=== PATIENT | female | born 1955 | race Caucasian/White ===

== ENCOUNTER 2016-10-06 09:16 | Day surgery (SDC) | payer BC ==
[2016-10-03 11:01] VITALS: BMI 34.6
--- NOTE | 2016-10-06 11:46 | HP ---
Past Medical History - Primary Care Physician PCP:: Devin Esquivel - Admission Chief Complaint: 61yo with NIALL 2-3 admitted for a cold knife cone cervical bx. 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: Alzheimer's, CVA, Dementia, Migraine, Multiple Sclerosis, Peripheral Neuropathy, Parkinson's, Seizure, Syncope, TIA, Vertigo, Other Cardiovascular: No: AFIB, Aneurysm, Aortic Insufficiency, Aortic Stenosis, CAD, CHF, Deep Vein Thrombosis, HTN, Hyperlipdemia, AL, Mitral Insufficiency, Mitral Stenosis, Murmur, Pulmonary Hypertension, Other Pulmonary: No: Asthma, Bronchitis, Cancer, COPD, O2 Dependent, Pneumonia, Previously Intubated, Pulmonary Embolus, Pulmonary Fibrosis, Sleep Apnea, Other Gastrointestinal: No: Ascites, Cancer, Constipation, Crohn's Disease, Diverticulitis, Diverticulosis, Esophageal Varices, Gastritis, GERD, GI Bleed, Hemorrhoids, Hiatal Hernia, Inflamatory Bowel Disease, Irritable Bowel Disease, Pancreatitis, Peptic Ulcer Disease, Ulcerative Colitis, Other Hepatobiliary: No: Cirrhosis, Cholelithiasis, Cholecystitis, Choledocholithiasis , Hepatitis A, Hepatitis B, Hepatitis C, Other Renal/: No: Renal Failure, Renal Inusuff, BPH, Cancer, Hematuria, Hemodialysis , Neurogenic Bladder, Renal Calculi, UTI, Other Reproductive: No: Ectopic , Endometriosis, Fibroids, PID, Polycystic Ovary Syndrome, Postmenopausal, Other Heme/Onc: No: Anemia, B12 Deficiency, Bleeding Disorder, Cancer, Current Chemotherapy, Current Radiation Therapy, Hemochromatosis, Hypercoaguable State, Myeloproliferative Synd, Sickle Cell Disease, Sickle Cell Trait, Thrombocytopenia, Other Infectious Disease: No: AIDS, C-Diff, Herpes Zoster, HIV, MRSA, STD's, Tuberculosis, VREF, Other Psych: No: Addictions, Anxiety, Bipolar, Depression, Panic, Psychosis, Schizophrenia, Other Musculoskeletal: No: Bursitis, Chronic low back pain, Hemiparesis, Hemiplegia, Osteoarthritis, Paraplegia, Other Rheumatology: No: Fibromyalgia, Gout, Lupus, Rheumatoid Arthritis, Sarcoidosis, Vasculitis, Other ENT: No: Allergic Rhinitis, Sinusitis, Other Endocrine: Yes: Diabetes Mellitus Dermatology: No: Basal Cell, Cellulitis, Eczema, Melanoma, Psoriasis, Squamous Cell, Other Additional Medical History: Obesity, hyperlipidemia - Past Surgical History Past Surgical History: Yes: None Hx Myomectomy: No Hx Transabdominal Cerclage: No - Smoking History Smoking history: Former smoker Have you smoked in the past 12 months: No Aproximately how many cigarettes per day: 0 If you are a former smoker, when did you quit?: 15 YRS AGO - Alcohol/Substance Use Hx Alcohol Use: No History of Substance Use: reports: None - Social History ADL: Independent History of Recent Travel: No Home Medications - Allergies Allergies/Adverse Reactions: Allergies Allergy/AdvReac Type Severity Reaction Status Date / Time adhesive Allergy Verified 10/06/16 10:42 cefaclor [From Ceclor] Allergy Verified 10/06/16 10:42 codeine [Codeine] Allergy Verified 10/06/16 10:42 ivp dye Allergy Uncoded 10/06/16 10:42 - Home Medications Home Medications: Ambulatory Orders Metoprolol Tartrate [Lopressor -] 25 mg PO BID #0 tab 04/14/12 Amlodipine Besylate 10 mg PO DAILY 10/03/16 Aspirin [Ecotrin] 81 mg PO DAILY 10/03/16 Calcium Carbonate/Vitamin D3 [Calcium 600 + Vit D Tablet] 1 each PO DAILY L.acidoph,Paracasei, B.lactis [Probiotic] 1 each PO DAILY 10/03/16 Magnesium 200 mg PO DAILY 10/03/16 Multivit-Min/FA/Lycopen/Lutein [Centrum Silver Tablet] 1 each PO DAILY 10/03/16 Mv,Iron,Min/Folic Acid/Biotin [Hair Formula Tablet] 1 each PO DAILY 10/03/16 Rabeprazole Sodium [Aciphex] 20 mg PO DAILY 10/03/16 Rosuvastatin Calcium [Crestor] 20 mg PO HS 10/03/16 Turmeric Root Extract [Turmeric] 500 mg PO DAILY 10/03/16 Family Disease History - Family Disease History Family History: Denies Review of Systems - Review of Systems Constitutional: reports: No Symptoms Eyes: reports: No Symptoms HENT: reports: No Symptoms Neck: reports: No Symptoms Cardiovascular: reports: No Symptoms Respiratory: reports: No Symptoms Gastrointestinal: reports: No Symptoms Genitourinary: reports: No Symptoms Breasts: reports: No Symptoms Reported Musculoskeletal: reports: No Symptoms Integumentary: reports: No Symptoms Neurological: reports: No Symptoms Endocrine: reports: No Symptoms Hematology/Lymphatic: reports: No Symptoms Psychiatric: reports: No Symptoms 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: Vital Signs Temperature 98.2 F 10/06/16 10:34 Pulse Rate 53 L 10/06/16 10:34 Respiratory Rate 20 10/06/16 10:34 Blood Pressure 132/63 10/06/16 10:34 O2 Sat by Pulse Oximetry (%) 99 10/06/16 10:27 Constitutional: Yes: Well Nourished, No Distress, Calm Eyes: Yes: WNL, Conjunctiva Clear HENT: Yes: WNL, Atraumatic, Normocephalic Neck: Yes: WNL, Supple, Trachea Midline Cardiovascular: Yes: WNL, Regular Rate and Rhythm Respiratory: Yes: WNL, Regular, CTA Bilaterally Gastrointestinal: Yes: Normal Bowel Sounds, Soft, Abdomen, Obese ...Rectal Exam: Yes: Deferred Renal/: Yes: WNL Pelvis: Yes: WNL External Genitalia: Yes: Normal Internal Exam Deferred: No Vaginal Exam: Yes: Normal Cervix: Yes: Normal Uterus: Yes: Normal Breast(s): Yes: WNL Musculoskeletal: Yes: WNL Extremities: Yes: WNL Edema: No Integumentary: Yes: WNL Neurological: Yes: WNL, Alert, Oriented ...Motor Strength: WNL Psychiatric: Yes: WNL, Alert, Oriented Assessment/Plan 61 yo female with NIALL 2-3 on colposcopy admitted for a cold knife cone bx. We had a long discussion about the risks, benefits, alternatives of the procedure, including bleeding, pain, recurrent dysplasia and/or cancer. The pt verbalized her understanding and requested to proceed.
[2016-10-06] MEDS ORDERED: MIDAZOLAM HCL 2 MG/2 ML SINGLE DOSE VIAL ONE (11:47)
[2016-10-06] MEDS ORDERED: SCOPOLAMINE HYDROBROMIDE 1 PATCH PATCH.TD72 ONE (11:47)
[2016-10-06] MEDS ORDERED: LIDOCAINE 1%/EPI 1:100000 (50 ML MULTI DOSE VIAL) ONE (12:05)
[2016-10-06] MEDS ORDERED: LIDOCAINE 1%/EPI 1:100000 (50 ML MULTI DOSE VIAL) INF ONE (12:06)
--- NOTE | 2016-10-06 12:41 | OP ---
Operative Note - Note: Operative Date: 10/06/16 Pre-Operative Diagnosis: NIALL 2-3 Operation: Cold knife cervical cone bx, ECC Findings: Normal cervix w/o lesions Post-Operative Diagnosis: Same as Pre-op Surgeon: Devin Esquivel Anesthesiologist/FIGURE MODEL: Cecilia Diez Anesthesia: General Specimens Removed: Cervical Cone bx Estimated Blood Loss (mls): 3 Blood Volume Replaced (mls): 0 Fluid Volume Replaced (mls): 600 Operative Report Dictated: Yes
[2016-10-06] MEDS ORDERED: ONDANSETRON 4 MG/2 ML VIAL IVPUSH PRN (12:44)
[2016-10-06] MEDS ORDERED: oxyCODONE HCL 5 MG TABLET PO PRN (12:44)
[2016-10-06] MEDS ORDERED: PROMETHAZINE HCL 25 MG/1 ML VIAL IVPUSH PRN (12:44)
[2016-10-06 13:27] VITALS: TEMP 97.8
[2016-10-06 14:08] VITALS: BP 145/69; PULSE 56
--- NOTE | 2016-10-07 05:41 | OP ---
DATE OF OPERATION: 10/06/2016 PREOPERATIVE DIAGNOSIS: Cervical intraepithelial neoplasia, grade 2-3. POSTOPERATIVE DIAGNOSIS: Cervical intraepithelial neoplasia, grade 2-3. PROCEDURE: Cold-knife cervical cone biopsy and endocervical curettage. SURGEON: Devin Esquivel MD OPHTHALMIC TECH: None. ANESTHESIOLOGIST: Cecilia Diez MD ANESTHESIA: General. COMPLICATIONS: None. ESTIMATED BLOOD LOSS: 3 mL. INTRAVENOUS FLUIDS: Crystalloid, 600 mL. URINE OUTPUT: Not counted. PATHOLOGY: Cervical cone biopsy and endocervical curettings. FINDINGS: Examination under anesthesia revealed a normal atrophic cervix without any lesions. Lugols solution was applied and no areas of acetowhite epithelium noted. Good hemostasis at the end of the procedure. DESCRIPTION OF PROCEDURE: The patient was met preoperatively. Risks, benefits, and alternatives of surgery were discussed in details. All questions were answered. The patient was then brought to the OR with the IV running. The patient was placed in a supine position on the surgical table. The general anesthesia was achieved without difficulty. The patient was then placed in a dorsal lithotomy position using adjustable Michele stirrups. She was prepped and draped in the usual sterile fashion. Examination under anesthesia was done with the findings as described previously. Two cervical sutures were placed for hemostasis at 3 o'clock and 9 o'clock using 0 Vicryl. A 1% lidocaine with epinephrine was injected into the cervical stroma circumferentially for additional hemostasis. The cervical os was traced using a cervical dilator. With the cervical dilator in place, a cone biopsy was excised to approximate the internal cervical os. The cone biopsy was removed and submitted to Pathology. A circumferential cervical suture was then used around the wound to obtain hemostasis. Once this was completed, good hemostasis was noted. Monsels solution was also applied for additional hemostasis. Once the procedure was completed, there was no further bleeding noted, and good hemostasis was confirmed. All of the instruments were removed from the patient. Sponge, lap, and needle counts were correct. The patient was transferred to the recovery room in stable condition and awake. Fareed TAVAREZ/[id number]
--- NOTE | 2016-10-08 14:39 | PATH ---
Surgical Pathology Report Patient Name: JUDITH BARGER Med. Rec. #: [id number] /Age/Gender: 1955 (Age: 61) / F Account: [id number] Location: [facility] SURGICAL Taken: 10/06/2016 Received: 10/06/2016 Reported: 10/08/2016 Physicians: Devin Esquivel M.D. Specimen(s) Received A: ENDOCERVICAL CURETTINGS B: CERVICAL CONE BX Clinical History Vaginal cervical neoplasia III Final Diagnosis A. ENDOCERVIX, CURETTAGE: DETACHED FRAGMENTS OF SQUAMOUS EPITHELIUM WITH HIGH GRADE SQUAMOUS INTRAEPITHELIAL LESION. SCANT FRAGMENTS OF BENIGN ENDOCERVICAL TISSUE. B. CERVIX, COLD KNIFE CONE BIOPSY: CERVICAL SQUAMOUS AND ENDOCERVICAL MUCOSA WITH FOCI OF HIGH GRADE SQUAMOUS INTRAEPITHELIAL LESION (CERVICAL INTRAEPITHELIAL NEOPLASIA 2-3/ NIALL 2-3) WITH GLANDULAR INVOLVEMENT. SURGICAL RESECTION MARGINS: ECTO- AND ENDOCERVICAL MARGINS ARE FREE OF HIGH GRADE DYSPLASIA; GLANDULAR EXTENSION OF HIGH GRADE DYSPLASIA FOCALLY ABUTS THE INKED SOFT TISSUE MARGIN. TRANSFORMATION ZONE: PRESENT. Electronically Signed Hipolito Cason M.D. Gross Description A. Received in formalin, labeled "endocervical curettings" is 0.7 cm in greatest dimension fragments of heath-pink soft tissue admixed with mucus. Entirely submitted in one cassette. B. Received in formalin, labeled "cervical cone biopsy" is a 1.5 x 1.1 x 0.7 cm unoriented annular portion of soft tissue. The cervical os is identified. The endocervical aspect is inked blue, the ectocervical and soft tissue aspects are inked black. The specimen is radially sectioned in clockwise direction and entirely submitted in four cassettes. AF/10/06/2016 final/10/06/2016
== END 2016-10-06 14:07 | disposition home or self-care (01) ==
LOC: JASU-SURG 09:16
PROVIDERS: ATTEND Obstetrics & Gynecology
PROC: 0UBC7ZX Excision of Cervix, Via Natural or Artificial Opening, Diagnostic (ICD-10-PCS; principal; 2016-10-06 11:00)
DX: N87.9 Dysplasia of cervix uteri, unspecified (principal)
CPT/HCPCS: 86850; 86900; 86901; 88305-TC; 88307-TC; 94760

== ENCOUNTER 2017-02-27 17:35 | Inpatient (IN) | payer BC ==
--- NOTE | 2017-02-27 17:42 | PDOC ---
Rapid Medical Evaluation Time Seen by Provider: 02/27/17 17:41 Medical Evaluation: Allergies Allergy/AdvReac Type Severity Reaction Status Date / Time adhesive Allergy Verified 10/06/16 10:42 cefaclor [From Ceclor] Allergy Verified 10/06/16 10:42 codeine [Codeine] Allergy Verified 10/06/16 10:42 ivp dye Allergy Uncoded 10/06/16 10:42 02/27/17 17:41 I have performed a brief in-person evaluation of this patient. The patient presents with a chief complaint of: Palpitations and sob tonight. H/ o HTN, HLD, former smoker, ?COPD Pertinent physical exam findings: Visibly SOB w/ tachycardia to 137, BP of 164/ 80 and sating 100% on RA. Has rapid afib on ekg to the 140s (no known hx per pt) I have ordered the following: Pt transferred immediately to main ED The patient will proceed to the ED for further evaluation. 02/27/17 17:44 Discharge Disposition - Referrals Referrals: Rachael Beatty MD [Primary Care Provider] - - Patient Instructions - Post Discharge Activity
[2017-02-27 18:04] VITALS: BMI 34.1
[2017-02-27] MEDS ORDERED: dilTIAZem HCL 50 MG/10 ML - 10 ML VIAL IVPUSH ONE (18:17)
[2017-02-27] MEDS ORDERED: dilTIAZem HCL 125 MG/25 ML - 25 ML VIAL ONE (18:22)
[2017-02-27] MEDS ORDERED: dilTIAZem HCL 50 MG/10 ML - 10 ML VIAL ONE (18:22)
--- NOTE | 2017-02-27 18:28 | PDOC ---
History of Present Illness - General Chief Complaint: Palpitations Stated Complaint: CHEST PAIN Time Seen by Provider: 02/27/17 17:41 - History of Present Illness Initial Comments: 02/27/17 18:27 61 yo F with h/o HTN, HLD, and GERD who presents with palpations. Pt. reports acute onset of palpitations "chest fluttering," and associated SOB at rest. States that she was laying down watching television at time of onset. Also endorses increased urinary frequency. Denies chest pain, N/V, fevers/chills, lightheadedness, LOC, abdominal pain, dysuria. Denies h.o NM , ACS/NM, CABG. Denies h/o DVT/PE. Denies h/o anticoagulation. 81 mg ASA/day. Past History - Past Medical History Allergies/Adverse Reactions: Allergies Allergy/AdvReac Type Severity Reaction Status Date / Time adhesive Allergy Verified 02/27/17 20:19 cefaclor [From Ceclor] Allergy Verified 02/27/17 20:19 codeine [Codeine] Allergy Verified 02/27/17 20:19 ivp dye Allergy Uncoded 02/27/17 20:19 Home Medications: Ambulatory Orders Metoprolol Tartrate [Lopressor -] 25 mg PO BID #0 tab 04/14/12 Amlodipine Besylate 10 mg PO DAILY 10/03/16 Aspirin [Ecotrin] 81 mg PO DAILY 10/03/16 Calcium Carbonate/Vitamin D3 [Calcium 600 + Vit D Tablet] 1 each PO DAILY L.acidoph,Paracasei, B.lactis [Probiotic] 1 each PO DAILY 10/03/16 Multivit-Min/FA/Lycopen/Lutein [Centrum Silver Tablet] 1 each PO DAILY 10/03/16 Mv,Iron,Min/Folic Acid/Biotin [Hair Formula Tablet] 1 each PO DAILY 10/03/16 Rabeprazole Sodium [Aciphex] 20 mg PO DAILY 10/03/16 Rosuvastatin Calcium [Crestor] 20 mg PO HS 10/03/16 Turmeric Root Extract [Turmeric] 500 mg PO DAILY 10/03/16 Anemia: No Asthma: No Cancer: No Cardiac Disorders: No CVA: No COPD: Yes CHF: No Dementia: No Diabetes: Yes (CONTROLLED BY DIET) GI Disorders: Yes (gastritis) Disorders: No HTN: Yes Hypercholesterolemia: Yes Liver Disease: No Seizures: No Thyroid Disease: No - Surgical History Appendectomy: No Cholecystectomy: Yes Orthopedic Surgery: Yes (BILAT FEET SX) - Suicide/Smoking/Psychosocial Hx Smoking Status: Yes Smoking History: Never smoked Have you smoked in the past 12 months: No Number of Cigarettes Smoked Daily: 0 If you are a former smoker, when did you quit?: 15 YRS AGO Information on smoking cessation initiated: No Hx Alcohol Use: No Drug/Substance Use Hx: No Substance Use Type: None Hx Substance Use Treatment: No Cardiac Specific PMH - Complaint Specific PMHX Pacemaker: No Review of Systems - Review of Systems Comments:: 02/27/17 18:56 GENERAL/CONSTITUTIONAL: No fever or chills. No weakness. HEAD, EYES, EARS, NOSE AND THROAT: No change in vision. No ear pain or discharge. No sore throat.- CARDIOVASCULAR: + Palpitations, SOB. No chest pain or shortness of breath RESPIRATORY: No cough, wheezing, or hemoptysis. GASTROINTESTINAL: No nausea, vomiting, diarrhea or constipation. GENITOURINARY: No dysuria, frequency, or change in urination. MUSCULOSKELETAL: No joint or muscle swelling or pain. No neck or back pain. SKIN: No rash NEUROLOGIC: No headache, vertigo, loss of consciousness, or change in strength/ sensation. ENDOCRINE: No increased thirst. No abnormal weight change HEMATOLOGIC/LYMPHATIC: No anemia, easy bleeding, or history of blood clots. ALLERGIC/IMMUNOLOGIC: No hives or skin allergy. *Physical Exam - Vital Signs Last Vital Signs Temp Pulse Resp BP Pulse Ox 98.2 F 92 H 18 135/77 100 02/27/17 17:41 02/27/17 18:43 02/27/17 18:43 02/27/17 18:43 02/27/17 18:43 - Physical Exam Comments: 02/27/17 18:56 GENERAL: Awake, alert, and fully oriented, in no acute distress HEAD: No signs of trauma, normocephalic, atraumatic EYES: PERRLA, EOMI, sclera anicteric, conjunctiva clear ENT: Auricles normal inspection, hearing grossly normal, nares patent, oropharynx clear without exudates. Moist mucosa NECK: Normal ROM, supple, no lymphadenopathy, JVD, or masses LUNGS: No distress, speaks full sentences, clear to auscultation bilaterally HEART: Irregular rate and rhythm, normal S1 and S2, no murmurs, rubs or gallops , peripheral pulses normal and equal bilaterally. EXTREMITIES : Normal inspection, Normal range of motion, no edema. No clubbing or cyanosis. NEUROLOGICAL: Cranial nerves II through XII grossly intact. Normal speech, normal gait, no focal sensorimotor deficits SKIN: Warm, Dry, normal turgor, no rashes or lesions noted. Heart Score/ECG Review - History History: Slightly suspicious - Electrocardiogram EKG: Non specific repolarization disturbance - Age Age: 45-65 - Risk Factors Risk Factors Heart Score: Yes Hx Hypercholesterolemia, Yes Hx Hypertension, Yes Smoking History Based on the list above the patient has:: >/=3 risk factors or Hx atherosclerotic disease - Troponin Troponin: </= normal limit - Score Heart Score - Total: 4 - [place]: Normal - QRS Poor R Wave Progression: No Q Wave Present: No - ST and T Early Repolarization: No Non Specific ST-T Wave changes: No Flattened T Waves: No Prolonged Q-T Interval: No - ECG Impressions Normal ECG: No Non-specific ST Elevation: Yes Tachycardia: Afib w/rapid Vent rate Torsades kevin Pointes: No WPW: No ED Treatment Course - LABORATORY CBC & Chemistry Diagram: 02/27/17 18:13 02/27/17 18:13 - ADDITIONAL ORDERS Additional order review: Laboratory Results 02/27/17 02/27/17 18:13 18:00 Sodium 143 Potassium 3.7 Chloride 111 H Carbon Dioxide 22 Anion Gap 10 BUN 11 D Creatinine 0.7 Creat Clearance w eGFR > 60 Random Glucose 115 H Calcium 9.2 Total Bilirubin 0.6 D AST 37 D ALT 70 D Alkaline Phosphatase 107 Creatine Kinase 161 Troponin I < 0.02 Total Protein 8.1 Albumin 4.2 Urine Color Colorless Urine Appearance Clear Urine pH 8.0 Ur Specific Snook 1.002 Urine Protein Negative Urine Glucose (UA) Negative Urine Ketones Negative Urine Blood Negative Urine Nitrite Negative Urine Bilirubin Negative Urine Urobilinogen Negative 02/27/17 18:13 RBC 4.60 MCV 89.4 MCHC 35.0 RDW 13.4 MPV 8.6 D Neutrophils % 37.9 L Lymphocytes % 53.2 H Monocytes % 6.7 D Eosinophils % 1.6 D Basophils % 0.6 - Medications Given in the ED: ED Medications Discontinued Medications Generic Name Dose Route Start Last Admin Trade Name Trino PRN Reason Stop Dose Admin Diltiazem HCl 20 mg 02/27/17 18:17 02/27/17 18:30 Cardizem Injection - IVPUSH 02/27/17 18:18 20 mg ONCE ONE Administration Medical Decision Making - Medical Decision Making 02/27/17 19:04 61 yo F with h/o HTN, HLD, and GERD who presents acute onset of palpitations "chest fluttering," 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 Phyiscal exam unremarkable with elevated pulse~129 on arrival and hypertensive SBP-164/ 86. Denies h/o NM, ACS/NM, CABG. Denies h/o DVT/PE. Denies h/o anticoagulation. 81 mg ASA/day. Patient EKG on arrival with evidence of new onset A-fib. Patient currently asymptomatic, but will provide rate control in ED. PCP Jaci. ED course: 02/27/17 19:20 CBC, CMP, Cardiac, EKG,CXR Diltiazem 20 mg, and Diltiazem gtt. 02/27/17 19:24 CBC, CMP: Unremarkable Trop: Neg 02/27/17 19:57 EKG: A-fib w/rvr, STD in inferior-lateral leads. Absent STD, or TWI. 02/27/17 20:06 CXR: unremarkable 02/27/17 20:[address] Beatty Admit to Tele. Consulted Dr. Oh Lovenox 100 mg IV *DC/Admit/Observation/Transfer - Referrals Referrals: Rachael Beatty MD [Primary Care Provider] - - Patient Instructions - Post Discharge Activity
[2017-02-27] MEDS ORDERED: DILTIAZEM INJECTION 125 MG in DEXTROSE 5%-WATER - 100 ML IVPB SCH (18:30)
[2017-02-27 18:33] LABS: URINE APPEARANCE CLEAR; URINE BILIRUBIN NEGATIVE (NEGATIVE); URINE BLOOD NEGATIVE (NEGATIVE); URINE COLOR COLORLESS; URINE GLUCOSE (UA) NEGATIVE (NEGATIVE); URINE KETONE NEGATIVE (NEGATIVE); URINE NITRITE NEGATIVE (NEGATIVE); URINE PROTEIN NEGATIVE (NEGATIVE); URINE UROBILINOGEN NEGATIVE mg/dL (0.2-1.0)
[2017-02-27 18:40] LABS: BASOPHIL 0.6 % (0-2.0); EOSINOPHIL 1.6 % (0-4.5); MCH 31.3 pg (25.7-33.7); MEAN CELL VOLUME 89.4 fl (80-96); MEAN PLT VOLUME 8.6 fl (7.5-11.1); NEUTROPHILS 37.9 % (42.8-82.8); PLATELET COUNT 290 K/MM3 (134-434); RDW 13.4 % (11.6-15.6); WHITE BLOOD COUNT 8.7 K/mm3 (4.0-10.0)
[2017-02-27 18:46] LABS: INR 1.01 (0.82-1.09); PROTHROMBIN TIME (PATIENT) 11.4 SEC (9.98-11.88)
[2017-02-27 18:49] LABS: ACTIVATED PTT 28.2 SECONDS (26.9-34.4)
--- NOTE | 2017-02-27 18:56 | PDOC ---
Attending Attestation - Resident Resident Name: Hansel Fournier - ED Attending Attestation I have performed the following: I have examined & evaluated the patient, The case was reviewed & discussed with the resident, I agree w/resident's findings & plan - HPI HPI: 02/27/17 19:02 The patient is a 61 year old female, with a significant past medical history of diabetes, gastritis, hypertension, and hyperlipidemia, who presents the the emergency department complaining of heart flutters for approximately 1 hour. Pt reports sudden onset of palpitations while at rests, but denies any chest pain, shortness of breath, diaphoresis, or lower extremity edema. - Physicial Exam PE: 02/27/17 19:02 Vitals: Triage Vital signs reviewed General Appearance: no acute distress, well nourished well developed, Head: Atraumatic, normocephalic Neck: Supple;No Nuchal rigidity Chest Wall: Nontender Cardiac: Irregularly irregular. No murmurs, no rubs, no gallops, Lungs: Clear to auscultation bilateral, good air movement bilaterally, Abdomen: Soft, nondistended, normal bowel sounds, nontender to palpation Rectal: Exam deferred Extremities: Full range of motion to all extremities, no cyanosis, clubbing, or edema Skin: Warm and dry, no rashes or lesions, no petechiae Neuro: AOX3; Cranial Nerves 2-12 grossly intact, Strength intact to all extremities, Sensation intact to all extremities Psych: normal mood, normal affect - Medical Decision Making 02/27/17 19:02 Patient is a 61 year old female, with a significant past medical history of diabetes, gastritis, hypertension, and hyperlipidemia, who presents the the emergency department complaining of palpitations for approximately 1 hour. Plan -ECG -Labs -CXR -Diltiazem Documentation prepared by Raffi Story, acting as medical staff physician for William Cheung MD. <Raffi Story - Last Filed: 02/27/17 19:01> - Critical Care Time Total Critical Care Time: 35 Critical Care Statement: The care of this patient involved high complexity decision making to prevent further life threatening deterioration of the patient 's condition and/or to evaluate & treat vital organ system(s) failure or risk of failure. - Medical Decision Making 02/28/17 09:34 Patient presents to the emergency department with A. fib with RVR ST depressions laterally on EKG IV diltiazem ordered patient place on IV diltiazem drip Status post IV medications A. fib now rate controlled the patient still remains in A. fib symptomatology of shortness of breath and palpitations have resolved We'll admit to medicine for cardiology consultation and further management <William Cheung - Last Filed: 02/28/17 09:35> Heart Score/ECG Review - ECG Intrepretation Comment:: 02/27/17 19:03 Rate of 140 bpm, AFib with RVR, ST depressions laterally, but no T wave inversions. <Raffi Story - Last Filed: 02/27/17 19:01>
[2017-02-27 18:58] LABS: ALBUMIN 4.2 g/dl (3.4-5.0); ANION GAP 10 (8-16); CALCIUM 9.2 mg/dL (8.5-10.1); CO2 22 mmol/L (21-32); GLUCOSE,RANDOM 115 mg/dL (74-106)
[2017-02-27 19:03] LABS: ALK PHOS 107 U/L (45-117); BILIRUBIN,TOTAL 0.6 mg/dL (0.2-1.0); CPK 161 IU/L (26-192); CREATININE 0.7 mg/dL (0.55-1.02); SGOT/AST 37 U/L (15-37); SGPT/ALT 70 U/L (12-78); TOT PROT 8.1 g/dl (6.4-8.2); TROPONIN I < 0.02 ng/ml (0.00-0.05)
[2017-02-27] MEDS ORDERED: SODIUM CHLORIDE 1,000 ML IV STA (19:59)
[2017-02-27] MEDS ORDERED: ENOXAPARIN NA (PORCINE) 100 MG/1 ML DISP.SYRIN SQ ONE ×2 (20:49→20:57)
[2017-02-27] MEDS ORDERED: ENOXAPARIN NA (PORCINE) 100 MG/1 ML DISP.SYRIN SQ SCH (22:00)
[2017-02-27 22:03] LABS: URINE LEUK ESTERASE Negative (NEGATIVE)
[2017-02-27] MEDS: ROSUVASTATIN CA 20 MG TABLET (FP) PO SCH (23:50)
[2017-02-27] MEDS: METOPROLOL TARTRATE 25 MG TABLET (FP) PO SCH (23:50)
[2017-02-28 00:43] LABS: THYROID STIMULATING HORMONE 2.2 uIU/ml (0.358-3.74); TROPONIN I 0.05 ng/ml (0.00-0.05)
[2017-02-28] MEDS ORDERED: PT OWN MED DRAWER 7, Y5N ONE (06:34)
[2017-02-28 07:41] LABS: MCH 30.5 pg (25.7-33.7); MCHC 33.4 g/dl (32.0-36.0); MEAN CELL VOLUME 91.3 fl (80-96); MEAN PLT VOLUME 8.5 fl (7.5-11.1); PLATELET COUNT 282 K/MM3 (134-434); RDW 13.5 % (11.6-15.6); WHITE BLOOD COUNT 8.4 K/mm3 (4.0-10.0)
[2017-02-28 09:12] LABS: ALBUMIN 4.1 g/dl (3.4-5.0); ALK PHOS 106 U/L (45-117); ANION GAP 10 (8-16); BILIRUBIN,TOTAL 0.5 mg/dL (0.2-1.0); CALCIUM 8.7 mg/dL (8.5-10.1); CHOLESTEROL 168 mg/dL (50-200); CO2 23 mmol/L (21-32); CPK 129 IU/L (26-192); CREATININE 0.6 mg/dL (0.55-1.02); GLUCOSE,RANDOM 101 mg/dL (74-106); SGOT/AST 39 U/L (15-37); SGPT/ALT 66 U/L (12-78); TOT PROT 7.8 g/dl (6.4-8.2); TROPONIN I 0.07 ng/ml (0.00-0.05)
[2017-02-28] MEDS ORDERED: ENOXAPARIN NA (PORCINE) 100 MG/1 ML DISP.SYRIN SQ SCH (10:00)
[2017-02-28] MEDS: PANTOPRAZOLE 40 MG TABLET (FP) PO SCH (10:17)
[2017-02-28] MEDS: METOPROLOL TARTRATE 25 MG TABLET (FP) PO SCH (10:17)
[2017-02-28] MEDS: ASPIRIN COATED 81 MG TABLET.EC PO SCH (10:17)
[2017-02-28 10:41] LABS: PLATELET COMMENTS NO CLUMPING NOTED; PLATELET ESTIMATE ADEQUATE; REACTIVE LYMPHOCYTES 3 % (0-80); TOTAL CELLS COUNTED 100
--- NOTE | 2017-02-28 10:58 | HP ---
Admitting History and Physical - Admission History of Present Illness: Patient is a 61 year old female, with a significant past medical history of diabetes, gastritis, hypertension, and hyperlipidemia, who presents the the emergency department complaining of palpitations associated with chest pain and sob THIS AM FEELS BETTER NO CP OR SOB NOW IN SINUS - Past Medical History Cardiovascular: Yes: HTN, Hyperlipdemia Pulmonary: Yes: COPD Gastrointestinal: Yes: GERD Hepatobiliary: Yes: Other (FATTY LIVER) Endocrine: Yes: Diabetes Mellitus - Past Surgical History Past Surgical History: Yes: None - Smoking History Smoking history: Never smoked Have you smoked in the past 12 months: No Aproximately how many cigarettes per day: 0 If you are a former smoker, when did you quit?: 15 YRS AGO - Alcohol/Substance Use Hx Alcohol Use: No History of Substance Use: reports: None - Social History ADL: Independent History of Recent Travel: No Home Medications - Allergies Allergies/Adverse Reactions: Allergies Allergy/AdvReac Type Severity Reaction Status Date / Time adhesive Allergy Verified 02/27/17 20:19 cefaclor [From Ceclor] Allergy Verified 02/27/17 20:19 codeine [Codeine] Allergy Verified 02/27/17 20:19 ivp dye Allergy Uncoded 02/27/17 20:19 - Home Medications Home Medications: Ambulatory Orders Metoprolol Tartrate [Lopressor -] 25 mg PO BID #0 tab 04/14/12 Amlodipine Besylate 10 mg PO DAILY 10/03/16 Aspirin [Ecotrin] 81 mg PO DAILY 10/03/16 Calcium Carbonate/Vitamin D3 [Calcium 600 + Vit D Tablet] 1 each PO DAILY L.acidoph,Paracasei, B.lactis [Probiotic] 1 each PO DAILY 10/03/16 Multivit-Min/FA/Lycopen/Lutein [Centrum Silver Tablet] 1 each PO DAILY 10/03/16 Mv,Iron,Min/Folic Acid/Biotin [Hair Formula Tablet] 1 each PO DAILY 10/03/16 Rabeprazole Sodium [Aciphex] 20 mg PO DAILY 10/03/16 Rosuvastatin Calcium [Crestor] 20 mg PO HS 10/03/16 Turmeric Root Extract [Turmeric] 500 mg PO DAILY 10/03/16 Review of Systems - Review of Systems Cardiovascular: reports: Chest Pain, Palpitations, Shortness of Breath Respiratory: reports: SOB, SOB on Exertion Gastrointestinal: reports: No Symptoms Genitourinary: reports: No Symptoms Physical Examination Vital Signs: Vital Signs Temperature 98.5 F 02/28/17 02:43 Pulse Rate 99 H 02/28/17 06:00 Respiratory Rate 20 02/28/17 06:00 Blood Pressure 141/80 02/28/17 06:00 O2 Sat by Pulse Oximetry (%) 98 02/27/17 22:00 Cardiovascular: Yes: Regular Rate and Rhythm, Murmur Respiratory: Yes: Regular, CTA Bilaterally Gastrointestinal: Yes: Normal Bowel Sounds, Soft. No: Tenderness Edema: No Labs: CBC, BMP 02/28/17 05:25 02/28/17 05:25 Problem List - Problems (1) New onset a-fib Assessment/Plan: NOW IN SINUS TFT NORMAL OFF CARDIZEM DRIP ON LOPRESSOR--WILL INCREASE TO 50 BID DC LOVENOX ELIQUIS 5 BID D-DIMER Code(s): I48.91 - UNSPECIFIED ATRIAL FIBRILLATION (2) Elevated troponin I level Assessment/Plan: MAY BE DEMAND DUE TO RAPID AFIB FOLLOW TROPONIN CARDIO ECHO NUCLEAR STRESS TEST Code(s): R74.8 - ABNORMAL LEVELS OF OTHER SERUM ENZYMES (3) HTN (hypertension) Assessment/Plan: SAME MEDS Code(s): I10 - ESSENTIAL (PRIMARY) HYPERTENSION (4) HLD (hyperlipidemia) Assessment/Plan: ON Code(s): E78.5 - HYPERLIPIDEMIA, UNSPECIFIED (5) Gingivitis Assessment/Plan: PAIN MEDS DENTAL CONSULT ON THURSDAY Code(s): K05.10 - CHRONIC GINGIVITIS, PLAQUE INDUCED
[2017-02-28 12:26] LABS: TROPONIN I 0.05 ng/ml (0.00-0.05)
--- NOTE | 2017-02-28 13:04 | CON.CARD ---
Consult Consult Specialty:: cardiology Referred by:: Jaci Reason for Consultation:: Atrial fibrillation - History of Present Illness Chief Complaint: Palpitations and chest discomfort. History of Present Illness: The patient is a 61-year-old overweight female, we've a history of hypertension , hyperlipidemia, former smoker, now presenting with an acute onset of palpitations associated with chest discomfort. The patient stated that she was resting at home, when she suddenly began experiencing a pounding sensation in her chest. The symptoms were associated with chest tightness and discomfort and mild dyspnea. In the emergency room the patient was found to be in rapid atrial fibrillation. She was treated with intravenous diltiazem. She spontaneously converted to sinus rhythm. She has been maintaining sinus rhythm. Symptoms resolved. The patient denies alcohol consumption. Quit smoking over 15 years ago. She reports good exercise tolerance. She stated that she has been able to exercise at the gym without any important limitations nor symptoms. Reports mild dyspnea while going uphill. These symptoms did not progress. 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 No: Asthma, Bronchitis, Cancer, O2 Dependent, Pneumonia, Previously Intubated, Pulmonary Embolus, Pulmonary Fibrosis, Sleep Apnea, Other Gastrointestinal: Yes: GERD. No: Ascites, Cancer, Constipation, Crohn's Disease , Diverticulitis, Diverticulosis, Esophageal Varices, Gastritis, GI Bleed, Hemorrhoids, Hiatal Hernia, Inflamatory Bowel Disease, Irritable Bowel Disease, Pancreatitis, Peptic Ulcer Disease, Ulcerative Colitis, Other Hepatobiliary: Yes: Other (FATTY LIVER). No: Cirrhosis, Cholelithiasis, Cholecystitis, Choledocholithiasis, Hepatitis A, Hepatitis B, Hepatitis C Renal/: No: Renal Failure, Renal Inusuff, BPH, Cancer, Hematuria, Hemodialysis , Neurogenic Bladder, Renal Calculi, UTI, Other Reproductive: No: Ectopic , Endometriosis, Fibroids, PID, Polycystic Ovary Syndrome, Postmenopausal, Other Infectious Disease: No: AIDS, C-Diff, Herpes Zoster, HIV, MRSA, STD's, Tuberculosis, VREF, Other Psych: No: Addictions, Anxiety, Bipolar, Depression, Panic, Psychosis, Schizophrenia, Other Rheumatology: No: Fibromyalgia, Gout, Lupus, Rheumatoid Arthritis, Sarcoidosis, Vasculitis, Other ENT: No: Allergic Rhinitis, Sinusitis, Other Endocrine: Yes: Diabetes Mellitus. No: [place]'s Disease, [place]'s Disease, Diabetes Insipidus, Hyperparathyroidism, Hyperthyroidism, Hypothyroidism, Osteopenia, SIADH, Other Dermatology: No: Basal Cell, Cellulitis, Eczema, Melanoma, Psoriasis, Squamous Cell, Other Additional Medical History: Obesity, hyperlipidemia - Past Surgical History Past Surgical History: Yes: None - Alcohol/Substance Use Hx Alcohol Use: No History of Substance Use: reports: None - Smoking History Smoking history: Never smoked Have you smoked in the past 12 months: No Aproximately how many cigarettes per day: 0 If you are a former smoker, when did you quit?: 15 YRS AGO - Social History ADL: Independent History of Recent Travel: No Home Medications - Allergies Allergies/Adverse Reactions: Allergies Allergy/AdvReac Type Severity Reaction Status Date / Time adhesive Allergy Verified 02/27/17 20:19 cefaclor [From Ceclor] Allergy Verified 02/27/17 20:19 codeine [Codeine] Allergy Verified 02/27/17 20:19 ivp dye Allergy Uncoded 02/27/17 20:19 - Home Medications Home Medications: Ambulatory Orders Metoprolol Tartrate [Lopressor -] 25 mg PO BID #0 tab 04/14/12 Amlodipine Besylate 10 mg PO DAILY 10/03/16 Aspirin [Ecotrin] 81 mg PO DAILY 10/03/16 Calcium Carbonate/Vitamin D3 [Calcium 600 + Vit D Tablet] 1 each PO DAILY L.acidoph,Paracasei, B.lactis [Probiotic] 1 each PO DAILY 10/03/16 Multivit-Min/FA/Lycopen/Lutein [Centrum Silver Tablet] 1 each PO DAILY 10/03/16 Mv,Iron,Min/Folic Acid/Biotin [Hair Formula Tablet] 1 each PO DAILY 10/03/16 Rabeprazole Sodium [Aciphex] 20 mg PO DAILY 10/03/16 Rosuvastatin Calcium [Crestor] 20 mg PO HS 10/03/16 Turmeric Root Extract [Turmeric] 500 mg PO DAILY 10/03/16 Review of Systems - Review of Systems Constitutional: reports: No Symptoms Eyes: reports: No Symptoms HENT: reports: No Symptoms Neck: reports: No Symptoms Cardiovascular: reports: Palpitations, Shortness of Breath Respiratory: reports: No Symptoms Gastrointestinal: reports: No Symptoms Genitourinary: reports: No Symptoms Breasts: reports: No Symptoms Reported Musculoskeletal: reports: No Symptoms Integumentary: reports: No Symptoms Neurological: reports: No Symptoms Endocrine: reports: No Symptoms Hematology/Lymphatic: reports: No Symptoms Psychiatric: reports: No Symptoms Vital Signs: Vital Signs Temperature 97.9 F 02/28/17 10:00 Pulse Rate 72 02/28/17 10:00 Respiratory Rate 20 02/28/17 10:00 Blood Pressure 139/64 02/28/17 10:00 O2 Sat by Pulse Oximetry (%) 98 02/28/17 09:00 Constitutional: Yes: Well Nourished, No Distress, Calm Eyes: Yes: WNL, Conjunctiva Clear, EOM Intact HENT: Yes: WNL, Atraumatic, Normocephalic Neck: Yes: WNL, Supple, Trachea Midline Respiratory: Yes: WNL, Regular, CTA Bilaterally Gastrointestinal: Yes: WNL, Normal Bowel Sounds, Soft Renal/: Yes: WNL Cardiovascular: Yes: WNL, Regular Rate and Rhythm, Bradycardia JVD: No Carotid Bruit: No PMI: Non-Displaced Heart Sounds: Yes: S1, S2 Murmur: Yes: Systolic Murmur, Grade 2 Musculoskeletal: Yes: WNL Extremities: Yes: WNL Edema: No Peripheral Pulses WNL: Yes Integumentary: Yes: WNL Neurological: Yes: WNL, Alert, Oriented ...Motor Strength: WNL Psychiatric: Yes: WNL - Other Data Labs, Other Data: CBC, BMP 02/28/17 05:25 02/28/17 05:25 INR, PTT INR 1.01 (0.82-1.09) 02/27/17 18:13 Troponin, BNP 02/27/17 02/27/17 02/28/17 18:13 23:00 05:25 Troponin I < 0.02 0.05 0.07 H B-Natriuretic Peptide 570.90 H 02/28/17 11:50 Troponin I 0.05 B-Natriuretic Peptide Troponin, BNP 02/27/17 02/27/17 02/28/17 18:13 23:00 05:25 Troponin I < 0.02 0.05 0.07 H B-Natriuretic Peptide 570.90 H 02/28/17 11:50 Troponin I 0.05 B-Natriuretic Peptide Assessment/Plan 61-year-old female with a history of hypertension, hyperlipidemia, former smoker , now presenting with an acute onset the palpitations. Found to be in rapid atrial fibrillation. Spontaneously converted to sinus rhythm. The patient is in sinus rhythm this morning. Bradycardic in the 50s. Completely asymptomatic. There is no evidence of ischemia nor acute coronary syndrome. Good exercise tolerance at baseline. No alcohol. No drugs. Please continue current regimen. Would start low molecular weight heparin. Obtain an echocardiogram. Further workup, once the echo findings are available. Continue telemetry. The patient is stable. We will follow.
[2017-02-28] MEDS: traMADol HCL 50 MG TABLET PO PRN (15:11)
--- NOTE | 2017-02-28 15:29 | CONSULT ---
Consult - text type - Consultation Consultation Note: The patient is a 61-year-old female with history of hypertension, hyperlipidemia, former smoker, now presenting with acute onset of palpitations associated with chest discomfort. The patient stated that she was resting at home, when she suddenly began experiencing a pounding sensation in her chest. The symptoms were associated with chest tightness and discomfort and mild dyspnea. In the emergency room the patient was found to be in rapid atrial fibrillation. She was treated with intravenous diltiazem. She spontaneously converted to sinus rhythm. She has been maintaining sinus rhythm. Symptoms resolved. The patient denies alcohol consumption. Quit smoking over 15 years ago. She reports good exercise tolerance. She stated that she has been able to exercise at the gym without any important limitations nor symptoms. Reports mild dyspnea while going uphill. These symptoms did not progress. 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 Going for repeat biopdy - Past Surgical History Past Surgical History: Yes: None - Alcohol/Substance Use Hx Alcohol Use: No - Smoking History Smoking history: Never smoked Home Medications - Allergies Allergies/Adverse Reactions: Allergies Allergy/AdvReac Type Severity Reaction Status Date / Time adhesive Allergy Verified 02/27/17 20:19 cefaclor [From Ceclor] Allergy Verified 02/27/17 20:19 codeine [Codeine] Allergy Verified 02/27/17 20:19 ivp dye Allergy Uncoded 02/27/17 20:19 - Home Medications Home Medications: Ambulatory Orders Metoprolol Tartrate [Lopressor -] 25 mg PO BID #0 tab 04/14/12 Amlodipine Besylate 10 mg PO DAILY 10/03/16 Aspirin [Ecotrin] 81 mg PO DAILY 10/03/16 Calcium Carbonate/Vitamin D3 [Calcium 600 + Vit D Tablet] 1 each PO DAILY L.acidoph,Paracasei, B.lactis [Probiotic] 1 each PO DAILY 10/03/16 Multivit-Min/FA/Lycopen/Lutein [Centrum Silver Tablet] 1 each PO DAILY 10/03/16 Mv,Iron,Min/Folic Acid/Biotin [Hair Formula Tablet] 1 each PO DAILY 10/03/16 Rabeprazole Sodium [Aciphex] 20 mg PO DAILY 10/03/16 Rosuvastatin Calcium [Crestor] 20 mg PO HS 10/03/16 Turmeric Root Extract [Turmeric] 500 mg PO DAILY 10/03/16 Active Medications Generic Name Dose Route Start Last Admin Trade Name Trino PRN Reason Stop Dose Admin Aspirin 81 mg 02/28/17 10:00 02/28/17 10:17 Ecotrin - PO 81 mg DAILY KEITH Administration Enoxaparin Sodium 90 mg 02/28/17 22:00 Lovenox - SQ BID KEITH Metoprolol Tartrate 50 mg 02/28/17 11:29 Lopressor - PO BID KEITH Pantoprazole Sodium 40 mg 02/28/17 10:00 02/28/17 10:17 Protonix - PO 40 mg DAILY KEITH Administration Rosuvastatin Calcium 20 mg 02/27/17 22:00 02/27/17 23:50 Crestor - PO 20 mg HS KEITH Administration Tramadol HCl 50 mg 02/28/17 11:28 02/28/17 15:11 Ultram - PO 50 mg Q6H PRN Administration PAIN Last Vital Signs Temp Pulse Resp BP Pulse Ox 97.9 F 72 20 139/64 98 02/28/17 10:00 02/28/17 10:00 02/28/17 10:00 02/28/17 10:00 02/28/17 09:00 Constitutional: Yes: Well Nourished, No Distress, Calm Eyes: Yes: WNL, Conjunctiva Clear, EOM Intact HENT: Yes: WNL, Atraumatic, Normocephalic Neck: Yes: WNL, Supple, Trachea Midline Respiratory: Yes: WNL, Regular, CTA Bilaterally Gastrointestinal: Yes: WNL, Normal Bowel Sounds, Soft Cardiovascular: Yes: WNL, Regular Rate and Rhythm, ext.--noc/c/e no breast masses no cervical/axillary adenopathy - Abnormal Lab Results 02/27/17 02/27/17 02/27/17 18:13 18:13 23:00 Neutrophils % 37.9 L Neutrophils % (Manual) Lymphocytes % 53.2 H Lymphocytes % (Manual) Monocytes % (Manual) D-Dimer Chloride 111 H Random Glucose 115 H AST Troponin I B-Natriuretic Peptide 570.90 H Triglycerides Total LDL Cholesterol HDL Cholesterol 02/28/17 02/28/17 02/28/17 05:25 05:25 11:50 Neutrophils % Neutrophils % (Manual) 36.0 L Lymphocytes % Lymphocytes % (Manual) 58.0 H Monocytes % (Manual) 3 L D-Dimer 297 H Chloride Random Glucose AST 39 H Troponin I 0.07 H B-Natriuretic Peptide Triglycerides 257 H D Total LDL Cholesterol 102 H HDL Cholesterol 30 L Assessment/Plan 61-year-old female with a history of DM,hypertension, hyperlipidemia, former smoker, now presenting with acute onset of palpitations. Found to be in rapid atrial fibrillation. Spontaneously converted to sinus rhythm. On LMWH Relative lymphocytosis ? reactive check flow/LDH cjeck hiv serology--patient agreed HPV infection Need for repeat cervical bx this week Had excision of NIALL? 10/20 To coordinate anticoagulation accordingly
[2017-02-28 17:39] LABS: ANION GAP 8 (8-16); CALCIUM 8.4 mg/dL (8.5-10.1); CO2 23 mmol/L (21-32); CREATININE 0.7 mg/dL (0.55-1.02); GLUCOSE,RANDOM 98 mg/dL (74-106); MAGNESIUM 1.9 mg/dL (1.8-2.4); PHOSPHOROUS 3.6 mg/dL (2.5-4.9)
[2017-02-28] MEDS ORDERED: APIXABAN 5 MG TABLET PO SCH (22:00)
[2017-02-28] MEDS: METOPROLOL TARTRATE 50 MG TABLET (FP) PO SCH (22:41)
[2017-02-28] MEDS: ROSUVASTATIN CA 20 MG TABLET (FP) PO SCH (22:54)
[2017-02-28] MEDS: ENOXAPARIN NA (PORCINE) 100 MG/1 ML DISP.SYRIN SQ SCH (22:55)
[2017-03-01 07:24] LABS: MCH 30.9 pg (25.7-33.7); MCHC 33.6 g/dl (32.0-36.0); MEAN CELL VOLUME 91.8 fl (80-96); MEAN PLT VOLUME 8.4 fl (7.5-11.1); PLATELET COUNT 244 K/MM3 (134-434); RDW 13.5 % (11.6-15.6); WHITE BLOOD COUNT 7.5 K/mm3 (4.0-10.0)
[2017-03-01 07:50] LABS: TROPONIN I 0.03 ng/ml (0.00-0.05)
[2017-03-01 08:32] LABS: PLATELET ESTIMATE ADEQUATE; REACTIVE LYMPHOCYTES 2 % (0-80); TOTAL CELLS COUNTED 100
[2017-03-01] MEDS: ASPIRIN COATED 81 MG TABLET.EC PO SCH (09:31)
[2017-03-01] MEDS: METOPROLOL TARTRATE 50 MG TABLET (FP) PO SCH ×2 (09:31→21:26)
[2017-03-01] MEDS: ENOXAPARIN NA (PORCINE) 100 MG/1 ML DISP.SYRIN SQ SCH ×2 (09:31→21:27)
[2017-03-01] MEDS: PANTOPRAZOLE 40 MG TABLET (FP) PO SCH (09:31)
--- NOTE | 2017-03-01 11:31 | PN ---
Progress Note, Physician - Current Medication List Current Medications: Active Medications Aspirin (Ecotrin -) 81 mg PO DAILY [facility] Last Admin: 03/01/17 09:31 Dose: 81 mg Enoxaparin Sodium (Lovenox -) 90 mg SQ BID [facility] Last Admin: 03/01/17 09:31 Dose: 90 mg Metoprolol Tartrate (Lopressor -) 50 mg PO BID [facility] Last Admin: 03/01/17 09:31 Dose: 50 mg Pantoprazole Sodium (Protonix -) 40 mg PO DAILY [facility] Last Admin: 03/01/17 09:31 Dose: 40 mg Rosuvastatin Calcium (Crestor -) 20 mg PO HS [facility] Last Admin: 02/28/17 22:54 Dose: 20 mg Tramadol HCl (Ultram -) 50 mg PO Q6H PRN PRN Reason: PAIN Last Admin: 02/28/17 15:11 Dose: 50 mg - Objective Vital Signs: Vital Signs Temperature 97.9 F 03/01/17 08:05 Pulse Rate 62 03/01/17 08:05 Respiratory Rate 20 03/01/17 08:07 Blood Pressure 132/70 03/01/17 08:05 O2 Sat by Pulse Oximetry (%) 97 03/01/17 08:07 Cardiovascular: Yes: Regular Rate and Rhythm Respiratory: Yes: Regular, CTA Bilaterally Gastrointestinal: Yes: Normal Bowel Sounds, Soft Labs: CBC, BMP 03/01/17 05:42 02/28/17 16:30 INR, PTT INR 1.01 (0.82-1.09) 02/27/17 18:13 Problem List - Problems (1) New onset a-fib Assessment/Plan: NOW IN SINUS TFT NORMAL OFF CARDIZEM DRIP ON LOPRESSOR--WILL INCREASE TO 50 BID ON LOVENOX D-DIMER POSITIVE---PULM CONSULT Code(s): I48.91 - UNSPECIFIED ATRIAL FIBRILLATION (2) Elevated troponin I level Assessment/Plan: MAY BE DEMAND DUE TO RAPID AFIB FOLLOW TROPONIN CARDIO ECHO NUCLEAR STRESS TEST Code(s): R74.8 - ABNORMAL LEVELS OF OTHER SERUM ENZYMES (3) HTN (hypertension) Assessment/Plan: SAME MEDS Code(s): I10 - ESSENTIAL (PRIMARY) HYPERTENSION (4) HLD (hyperlipidemia) Assessment/Plan: ON CRESTOR Code(s): E78.5 - HYPERLIPIDEMIA, UNSPECIFIED (5) Gingivitis Assessment/Plan: PAIN MEDS DENTAL CONSULT ON THURSDAY Code(s): K05.10 - CHRONIC GINGIVITIS, PLAQUE INDUCED
[2017-03-01] MEDS: traMADol HCL 50 MG TABLET PO PRN (12:20)
--- NOTE | 2017-03-01 12:43 | PN ---
Progress Note, Physician Chief Complaint: Palpitations History of Present Illness: 61-year-old woman presenting with intermittent palpitations. Found to have paroxysmal atrial fibrillation. Currently in sinus rhythm. - Current Medication List Current Medications: Active Medications Aspirin (Ecotrin -) 81 mg PO DAILY [facility] Last Admin: 03/01/17 09:31 Dose: 81 mg Enoxaparin Sodium (Lovenox -) 90 mg SQ BID [facility] Last Admin: 03/01/17 09:31 Dose: 90 mg Metoprolol Tartrate (Lopressor -) 50 mg PO BID [facility] Last Admin: 03/01/17 09:31 Dose: 50 mg Pantoprazole Sodium (Protonix -) 40 mg PO DAILY [facility] Last Admin: 03/01/17 09:31 Dose: 40 mg Rosuvastatin Calcium (Crestor -) 20 mg PO HS [facility] Last Admin: 02/28/17 22:54 Dose: 20 mg Tramadol HCl (Ultram -) 50 mg PO Q6H PRN PRN Reason: PAIN Last Admin: 03/01/17 12:20 Dose: 50 mg - Objective Vital Signs: Vital Signs Temperature 97.9 F 03/01/17 08:05 Pulse Rate 62 03/01/17 08:05 Respiratory Rate 20 03/01/17 08:07 Blood Pressure 132/70 03/01/17 08:05 O2 Sat by Pulse Oximetry (%) 97 03/01/17 08:07 Constitutional: Yes: Well Nourished, No Distress, Calm Eyes: Yes: WNL HENT: Yes: WNL, Atraumatic, Normocephalic Neck: Yes: WNL, Supple, Trachea Midline Cardiovascular: Yes: WNL, Regular Rate and Rhythm, Bradycardia Respiratory: Yes: WNL, Regular, CTA Bilaterally Gastrointestinal: Yes: WNL, Normal Bowel Sounds, Soft ...Rectal Exam: Yes: Deferred Musculoskeletal: Yes: WNL Extremities: Yes: WNL Edema: No Peripheral Pulses WNL: Yes Integumentary: Yes: WNL Neurological: Yes: WNL Psychiatric: Yes: WNL Labs: CBC, BMP 03/01/17 05:42 02/28/17 16:30 INR, PTT INR 1.01 (0.82-1.09) 02/27/17 18:13 Assessment/Plan The patient remains stable from the cardiac standpoint. She is maintaining sinus rhythm. Sinus bradycardia to the 50s on telemetry. Asymptomatic bradycardia. No need for intervention. Continue Lovenox for the time being. Echocardiogram is pending. Further recommendations once the echo findings are available. The patient is stable and comfortable.
--- NOTE | 2017-03-01 13:44 | CON.PULM ---
Consult Consult Specialty:: PULM/CCM Referred by:: VLADIMIR Reason for Consultation:: NEW AFIB - History of Present Illness Chief Complaint: Palpitations History of Present Illness: 61 F, hypertension, hyperlipidemia, former smoker x 15 years (laser therapy), and reported COPD, not on any meds. Known Pulmonary nodule that on most recent CT on 02/27/2017 is mostly dissipated and 2 mm. Admitted via the ER due to acute onset of palpitations associated with chest discomfort while she was cleaning. Patient drove herself here. No personal or family history of VTE. No clear recent risk factors of concern. (+) Snoring and some history concerning for OSAS. Noted mildly elevated D-Dimer (297). - History Source History Provided By: Patient Limitations to Obtaining History: No Limitations - Past Medical History SWIMMER: No: Alzheimer's, CVA, Dementia, Migraine, Multiple Sclerosis, Peripheral Neuropathy, Parkinson's, Seizure, Syncope, TIA, Vertigo, Other Cardio/Vascular: Yes: AFIB, HTN, Hyperlipdemia Pulmonary: Yes: COPD. No: Asthma, Bronchitis, Cancer, O2 Dependent, Pneumonia, Previously Intubated, Pulmonary Embolus, Pulmonary Fibrosis, Sleep Apnea, Other Gastrointestinal: Yes: GERD. No: Ascites, Cancer, Constipation, Crohn's Disease , Diverticulitis, Diverticulosis, Esophageal Varices, Gastritis, GI Bleed, Hemorrhoids, Hiatal Hernia, Inflamatory Bowel Disease, Irritable Bowel Disease, Pancreatitis, Peptic Ulcer Disease, Ulcerative Colitis, Other Hepatobiliary: Yes: Other (FATTY LIVER). No: Cirrhosis, Cholelithiasis, Cholecystitis, Choledocholithiasis, Hepatitis A, Hepatitis B, Hepatitis C Renal/: No: Renal Failure, Renal Inusuff, BPH, Cancer, Hematuria, Hemodialysis , Neurogenic Bladder, Renal Calculi, UTI, Other Infectious Disease: No: AIDS, C-Diff, Herpes Zoster, HIV, MRSA, STD's, Tuberculosis, VREF, Other Psych: No: Addictions, Anxiety, Bipolar, Depression, Panic, Psychosis, Schizophrenia, Other Rheumatology: No: Fibromyalgia, Gout, Lupus, Rheumatoid Arthritis, Sarcoidosis, Vasculitis, Other ENT: No: Allergic Rhinitis, Sinusitis, Other Endocrine: Yes: Diabetes Mellitus. No: Converse's Disease, Arbela's Disease, Diabetes Insipidus, Hyperparathyroidism, Hyperthyroidism, Hypothyroidism, Osteopenia, SIADH, Other Dermatology: No: Basal Cell, Cellulitis, Eczema, Melanoma, Psoriasis, Squamous Cell, Other Additional Medical History: Obesity, hyperlipidemia - Past Surgical History Past Surgical History: Yes: None - Alcohol/Substance Use Hx Alcohol Use: No History of Substance Use: reports: None - Smoking History Smoking history: Never smoked Have you smoked in the past 12 months: No Aproximately how many cigarettes per day: 0 If you are a former smoker, when did you quit?: 15 YRS AGO - Social History ADL: Independent History of Recent Travel: No Home Medications - Allergies Allergies/Adverse Reactions: Allergies Allergy/AdvReac Type Severity Reaction Status Date / Time adhesive Allergy Verified 02/27/17 20:19 cefaclor [From Ceclor] Allergy Verified 02/27/17 20:19 codeine [Codeine] Allergy Verified 02/27/17 20:19 ivp dye Allergy Uncoded 02/27/17 20:19 - Home Medications Home Medications: Ambulatory Orders Metoprolol Tartrate [Lopressor -] 25 mg PO BID #0 tab 04/14/12 Amlodipine Besylate 10 mg PO DAILY 10/03/16 Aspirin [Ecotrin] 81 mg PO DAILY 10/03/16 Calcium Carbonate/Vitamin D3 [Calcium 600 + Vit D Tablet] 1 each PO DAILY L.acidoph,Paracasei, B.lactis [Probiotic] 1 each PO DAILY 10/03/16 Multivit-Min/FA/Lycopen/Lutein [Centrum Silver Tablet] 1 each PO DAILY 10/03/16 Mv,Iron,Min/Folic Acid/Biotin [Hair Formula Tablet] 1 each PO DAILY 10/03/16 Rabeprazole Sodium [Aciphex] 20 mg PO DAILY 10/03/16 Rosuvastatin Calcium [Crestor] 20 mg PO HS 10/03/16 Turmeric Root Extract [Turmeric] 500 mg PO DAILY 10/03/16 Review of Systems - Review of Systems Constitutional: denies: Chills, Fever, Night Sweats, Unintentional Wgt. Loss, Weakness Eyes: reports: No Symptoms HENT: reports: No Symptoms Neck: reports: No Symptoms Cardiovascular: reports: Chest Pain, Palpitations, Shortness of Breath. denies : Edema Respiratory: reports: Snoring, SOB on Exertion. denies: Cough, Exercise Intolerance, Hemoptysis, Wheezing Gastrointestinal: reports: No Symptoms Genitourinary: reports: No Symptoms Breasts: reports: No Symptoms Reported Musculoskeletal: reports: No Symptoms Integumentary: reports: No Symptoms Neurological: reports: No Symptoms Endocrine: reports: No Symptoms Hematology/Lymphatic: reports: No Symptoms Psychiatric: reports: No Symptoms Physical Exam Vital Sings: Vital Signs Temperature 97.9 F 03/01/17 08:05 Pulse Rate 62 03/01/17 08:05 Respiratory Rate 20 03/01/17 08:07 Blood Pressure 132/70 03/01/17 08:05 O2 Sat by Pulse Oximetry (%) 97 03/01/17 08:07 Constitutional: Yes: Well Nourished, No Distress Eyes: Yes: Conjunctiva Clear, EOM Intact HENT: Yes: Atraumatic, Normocephalic Neck: Yes: Supple, Trachea Midline Cardiovascular: Yes: Regular Rate and Rhythm Respiratory: Yes: Regular, CTA Bilaterally ...Inspection: Yes: WNL ...Clubbing: No Gastrointestinal: Yes: Normal Bowel Sounds, Soft, Abdomen, Obese Renal/: Yes: WNL Musculoskeletal: Yes: WNL Extremities: Yes: WNL Edema: No Peripheral Pulses WNL: Yes Integumentary: Yes: WNL Neurological: Yes: WNL, Alert, Oriented ...Motor Strength: WNL Psychiatric: Yes: WNL, Alert, Oriented Labs: CBC, BMP 03/01/17 05:42 02/28/17 16:30 Imaging - Results Chest X-ray: Report Reviewed, Image Reviewed Problem List - Problems (1) Elevated d-dimer Code(s): R79.89 - OTHER SPECIFIED ABNORMAL FINDINGS OF BLOOD CHEMISTRY (2) Elevated troponin I level Code(s): R74.8 - ABNORMAL LEVELS OF OTHER SERUM ENZYMES (3) HLD (hyperlipidemia) Code(s): E78.5 - HYPERLIPIDEMIA, UNSPECIFIED (4) HTN (hypertension) Code(s): I10 - ESSENTIAL (PRIMARY) HYPERTENSION (5) New onset a-fib Code(s): I48.91 - UNSPECIFIED ATRIAL FIBRILLATION Assessment/Plan R/O OSAS due to clinical history and risk factors : Formal outpatient workup will be needed O2 as needed Very clinical suspicion for VTE, but will check LE doppler Cardiology workup Outpatient PFTs No smoking No need for further lung nodule Will follow Thank you. Dr Felder
[2017-03-01] MEDS: ROSUVASTATIN CA 20 MG TABLET (FP) PO SCH (21:26)
[2017-03-02 08:25] LABS: HIV 1 & 2 AB NEGATIVE; HIV 1 AGp24 NEGATIVE
--- NOTE | 2017-03-02 08:41 | PN ---
Progress Note, Physician History of Present Illness: no complaints this am - Current Medication List Current Medications: Active Medications Aspirin (Ecotrin -) 81 mg PO DAILY [facility] Last Admin: 03/01/17 09:31 Dose: 81 mg Enoxaparin Sodium (Lovenox -) 90 mg SQ BID [facility] Last Admin: 03/01/17 21:27 Dose: 90 mg Metoprolol Tartrate (Lopressor -) 50 mg PO BID [facility] Last Admin: 03/01/17 21:26 Dose: Not Given Pantoprazole Sodium (Protonix -) 40 mg PO DAILY [facility] Last Admin: 03/01/17 09:31 Dose: 40 mg Rosuvastatin Calcium (Crestor -) 20 mg PO HS [facility] Last Admin: 03/01/17 21:26 Dose: 20 mg Tramadol HCl (Ultram -) 50 mg PO Q6H PRN PRN Reason: PAIN Last Admin: 03/01/17 12:20 Dose: 50 mg - Objective Vital Signs: Vital Signs Temperature 97.4 F L 03/02/17 07:50 Pulse Rate 64 03/02/17 07:50 Respiratory Rate 20 03/02/17 07:52 Blood Pressure 125/71 03/02/17 07:50 O2 Sat by Pulse Oximetry (%) 99 03/02/17 07:52 Cardiovascular: Yes: Regular Rate and Rhythm Respiratory: Yes: Regular, CTA Bilaterally Gastrointestinal: Yes: Normal Bowel Sounds, Soft Labs: CBC, BMP 03/01/17 05:42 02/28/17 16:30 INR, PTT INR 1.01 (0.82-1.09) 02/27/17 18:13 Problem List - Problems (1) New onset a-fib Assessment/Plan: NOW IN SINUS TFT NORMAL OFF CARDIZEM DRIP ON LOPRESSOR--WILL INCREASE TO 50 BID ON LOVENOX D-DIMER POSITIVE---PULM CONSULT --low suspicion Code(s): I48.91 - UNSPECIFIED ATRIAL FIBRILLATION (2) Elevated troponin I level Assessment/Plan: MAY BE DEMAND DUE TO RAPID AFIB FOLLOW TROPONIN CARDIO ECHO NUCLEAR STRESS TEST Code(s): R74.8 - ABNORMAL LEVELS OF OTHER SERUM ENZYMES (3) HTN (hypertension) Assessment/Plan: SAME MEDS Code(s): I10 - ESSENTIAL (PRIMARY) HYPERTENSION (4) HLD (hyperlipidemia) Assessment/Plan: ON CRESTOR Code(s): E78.5 - HYPERLIPIDEMIA, UNSPECIFIED (5) Gingivitis Assessment/Plan: PAIN MEDS DENTAL CONSULT ON THURSDAY Code(s): K05.10 - CHRONIC GINGIVITIS, PLAQUE INDUCED
[2017-03-02] MEDS: METOPROLOL TARTRATE 50 MG TABLET (FP) PO SCH (09:14)
[2017-03-02] MEDS: ENOXAPARIN NA (PORCINE) 100 MG/1 ML DISP.SYRIN SQ SCH (09:14)
[2017-03-02] MEDS: ASPIRIN COATED 81 MG TABLET.EC PO SCH (09:14)
[2017-03-02] MEDS: PANTOPRAZOLE 40 MG TABLET (FP) PO SCH (09:14)
--- NOTE | 2017-03-02 15:27 | PN ---
Progress Note, Physician Chief Complaint: brief palpitations. Tele NSR throughout. History of Present Illness: The patient is a 61-year-old overweight female, we've a history of hypertension , hyperlipidemia, former smoker, now presenting with an acute onset of palpitations associated with chest discomfort. The patient stated that she was resting at home, when she suddenly began experiencing a pounding sensation in her chest. The symptoms were associated with chest tightness and discomfort and mild dyspnea. In the emergency room the patient was found to be in rapid atrial fibrillation. She was treated with intravenous diltiazem. She spontaneously converted to sinus rhythm. She has been maintaining sinus rhythm. Symptoms resolved. Echo and stress test done, results pending. Duplex neg for DVT. - Current Medication List Current Medications: Active Medications Aspirin (Ecotrin -) 81 mg PO DAILY [facility] Last Admin: 03/02/17 09:14 Dose: 81 mg Enoxaparin Sodium (Lovenox -) 90 mg SQ BID [facility] Last Admin: 03/02/17 09:14 Dose: 90 mg Metoprolol Tartrate (Lopressor -) 50 mg PO BID [facility] Last Admin: 03/02/17 09:14 Dose: 50 mg Pantoprazole Sodium (Protonix -) 40 mg PO DAILY [facility] Last Admin: 03/02/17 09:14 Dose: 40 mg Rosuvastatin Calcium (Crestor -) 20 mg PO HS [facility] Last Admin: 03/01/17 21:26 Dose: 20 mg Tramadol HCl (Ultram -) 50 mg PO Q6H PRN PRN Reason: PAIN Last Admin: 03/01/17 12:20 Dose: 50 mg - Objective Vital Signs: Vital Signs Temperature 97.4 F L 03/02/17 07:50 Pulse Rate 64 03/02/17 07:50 Respiratory Rate 20 03/02/17 14:35 Blood Pressure 145/73 03/02/17 14:35 O2 Sat by Pulse Oximetry (%) 99 03/02/17 07:52 Constitutional: Yes: Well Nourished, No Distress Eyes: Yes: Conjunctiva Clear, EOM Intact HENT: Yes: Atraumatic, Normocephalic Neck: Yes: Supple, Trachea Midline Cardiovascular: Yes: Regular Rate and Rhythm Respiratory: Yes: CTA Bilaterally Gastrointestinal: Yes: Normal Bowel Sounds, Soft, Abdomen, Obese Musculoskeletal: Yes: WNL Extremities: Yes: WNL Edema: No Peripheral Pulses WNL: Yes Labs: CBC, BMP 03/01/17 05:42 02/28/17 16:30 INR, PTT INR 1.01 (0.82-1.09) 02/27/17 18:13 Problem List - Problems (1) New onset a-fib Assessment/Plan: would DC lovenox and start Eliquis 5 mg bid. coatinue with beta julieta. will follow up on echo and stress test. Code(s): I48.91 - UNSPECIFIED ATRIAL FIBRILLATION
[2017-03-02 15:36] VITALS: BP 151/80; PULSE 59; TEMP 98.1
--- NOTE | 2017-03-02 17:33 | DS ---
Physical Examination Vital Signs: Vital Signs Temperature 98.1 F 03/02/17 15:35 Pulse Rate 59 L 03/02/17 15:35 Respiratory Rate 18 03/02/17 15:35 Blood Pressure 151/80 03/02/17 15:35 O2 Sat by Pulse Oximetry (%) 99 03/02/17 07:52 Labs: CBC, BMP 03/01/17 05:42 02/28/17 16:30 Discharge Summary Reason For Visit: NEW ONSET ATRIAL FIBRILLATION Current Active Problems Elevated d-dimer (Acute) Elevated troponin I level (Acute) Gingivitis (Acute) HLD (hyperlipidemia) (Acute) HTN (hypertension) (Acute) New onset a-fib (Acute) Hospital Course: - Problems (1) New onset a-fib Assessment/Plan: NOW IN SINUS TFT NORMAL OFF CARDIZEM DRIP ON LOPRESSOR--WILL INCREASE TO 50 BID ON LOVENOX---ELIQUIS 5 BID D-DIMER POSITIVE---PULM CONSULT --low suspicion Code(s): I48.91 - UNSPECIFIED ATRIAL FIBRILLATION (2) Elevated troponin I level Assessment/Plan: MAY BE DEMAND DUE TO RAPID AFIB FOLLOW TROPONIN CARDIO ECHO NUCLEAR STRESS TEST-NEGATIVE Code(s): R74.8 - ABNORMAL LEVELS OF OTHER SERUM ENZYMES (3) HTN (hypertension) Assessment/Plan: SAME MEDS Code(s): I10 - ESSENTIAL (PRIMARY) HYPERTENSION (4) HLD (hyperlipidemia) Assessment/Plan: ON OR Code(s): E78.5 - HYPERLIPIDEMIA, UNSPECIFIED (5) Gingivitis Assessment/Plan: PAIN MEDS DENTAL CONSULT ON THURSDAY Code(s): K05.10 - CHRONIC GINGIVITIS, PLAQUE INDUCED Condition: Improved - Instructions Referrals: Rachael Beatty MD [Primary Care Provider] - 1 Week Disposition: HOME - Home Medications Comprehensive Discharge Medication List: Ambulatory Orders Metoprolol Tartrate [Lopressor -] 25 mg PO BID #0 tab 04/14/12 Aspirin [Ecotrin] 81 mg PO DAILY 10/03/16 Calcium Carbonate/Vitamin D3 [Calcium 600 + Vit D Tablet] 1 each PO DAILY L.acidoph,Paracasei, B.lactis [Probiotic] 1 each PO DAILY 10/03/16 Multivit-Min/FA/Lycopen/Lutein [Centrum Silver Tablet] 1 each PO DAILY 10/03/16 Mv,Iron,Min/Folic Acid/Biotin [Hair Formula Tablet] 1 each PO DAILY 10/03/16 Rabeprazole Sodium [Aciphex] 20 mg PO DAILY 10/03/16 Rosuvastatin Calcium [Crestor] 20 mg PO HS 10/03/16 Turmeric Root Extract [Turmeric] 500 mg PO DAILY 10/03/16 Apixaban [Eliquis -] 5 mg PO BID #60 tablet 03/02/17 Metoprolol Tartrate [Lopressor -] 50 mg PO BID #60 tablet 03/02/17 Tramadol HCl [Ultram -] 50 mg PO Q6H PRN #20 tablet MDD 4 03/02/17
--- NOTE | 2017-03-02 22:19 | EKG ---
Test Reason : Blood Pressure : / mmHG Vent. Rate : 055 BPM Atrial Rate : 055 BPM P-R Int : 144 ms QRS Dur : 084 ms QT Int : 444 ms P-R-T Axes : 054 -07 -08 degrees QTc Int : 424 ms SINUS BRADYCARDIA OTHERWISE NORMAL ECG WHEN COMPARED WITH ECG OF 27-FEB-2017 17:41, SINUS RHYTHM HAS REPLACED ATRIAL FIBRILLATION VENT. RATE HAS DECREASED BY 85 BPM Confirmed by YESSENIA LONG, VIVIAN ([id number]) on 03/02/2017 10:19:20 PM Referred By: Celso SAUER Confirmed By:VIVIAN CASAS MD
--- NOTE | 2017-03-02 23:08 | EKG ---
Test Reason : Blood Pressure : / mmHG Vent. Rate : 140 BPM Atrial Rate : 136 BPM P-R Int : 000 ms QRS Dur : 076 ms QT Int : 316 ms P-R-T Axes : 000 -03 -42 degrees QTc Int : 482 ms ATRIAL FIBRILLATION WITH RAPID VENTRICULAR RESPONSE MARKED ST ABNORMALITY, POSSIBLE INFERIOR SUBENDOCARDIAL INJURY ABNORMAL ECG WHEN COMPARED WITH ECG OF 13-APR-2012 07:31, ATRIAL FIBRILLATION HAS REPLACED SINUS RHYTHM VENT. RATE HAS INCREASED BY [address] NOW DEPRESSED IN INFERIOR LEADS Confirmed by VIVIAN CASAS MD ([id number]) on 03/02/2017 11:08:43 PM Referred By: Confirmed By:VIVIAN CASAS MD
--- NOTE | 2017-03-03 13:17 | PATH ---
Surgical Pathology Report Patient Name: JUDITH BARGER Med. Rec. #: [id number] /Age/Gender: 1955 (Age: 61) / F Account: [id number] Location: 4 W TELEMETRY U Taken: 03/02/2017 Received: 03/02/2017 Reported: 03/03/2017 Physicians: Asmita Madison M.D. Specimen(s) Received PERIPHERAL BLOOD 2 GREEN TOPS Clinical History Lymphocytosis Final Diagnosis PERIPHERAL BLOOD: FL[facility] [place] ([id number] shows the following: INTERPRETATION: There is no evidence of B or T-cell proliferative disorders. Decreased granulocytes. Electronically Signed Joe Rivera M.D. Gross Description Received are 2 green top tubes of peripheral blood which are sent to [facility]. /03/02/2017 saudi03/02/2017
== END 2017-03-02 18:24 | disposition home or self-care (01) | DRG 310 ==
LOC: JER 17:35 → J4W 20:52
PROVIDERS: ADMIT Family Medicine; ATTEND Family Medicine
DX: I48.91 Unspecified atrial fibrillation (principal); I10 Essential (primary) hypertension; E78.5 Hyperlipidemia, unspecified; R00.0 Tachycardia, unspecified; K21.9 Gastro-esophageal reflux disease without esophagitis; E11.9 Type 2 diabetes mellitus without complications; K29.60 Other gastritis without bleeding; K76.0 Fatty (change of) liver, not elsewhere classified; J44.9 Chronic obstructive pulmonary disease, unspecified; R00.1 Bradycardia, unspecified; K05.10 Chronic gingivitis, plaque induced; R74.8 Abnormal levels of other serum enzymes; Z87.891 Personal history of nicotine dependence; E66.8 Other obesity; Z68.34 Body mass index [BMI] 34.0-34.9, adult
CPT/HCPCS: 36415; 71010-TC; 78452-TC; 80048; 80053; 80061; 81003; 82550; 82553; 83036; 83721; 83735; 83880; 84100; 84439; 84443; 84480; 84484; 85025; 85379; 85610; 85730; 86704; 86706; 86708; 86803; 87340; 87389; 88300-TC; 93005; 93010; 93017; 93306-TC; 93970-TC; 99283-25; A9502